=== PATIENT | female | born 1945 | race Caucasian/White ===

== ENCOUNTER 2016-08-06 10:14 | Inpatient (IN) | payer OTHER ==
[~2016-08-06] VITALS: Ht 152.4 cm; Wt 91.3 kg
[~2016-08-06 10:14] MED LIST: ALBUTEROL SULFAT3 M1 INH; ASPIR 8181 MG PO; COZAAR 100MG T100 MG PO; DOXYCYCLINE100 M2 PO; FLOVENT HF0.11 MG/Ac INH; HYDRODIURIL 2525 MG PO; LEVAQUIN500 MG PO; LISINOPRIL40 MG PO; MEDROL DOSEPAK1 PAC PO; METFORMIN ER500 MG PO; METOPROLOL SUC100 M1 PO; NORVASC 5MG TAB5 MG PO; PROAIR HFA0.09 MG/Ac INH; SIMVASTATIN40 MG PO; XANAX0.5 MG PO
--- NOTE | 2016-08-06 10:19 | NUR ---
71 Y/O FEMALE SENT BY EDI DESHPANDE FOR EVAL OF SOB X 2-3 WEEKS. PT REPORTS SOB WITH EXERTION. DENIES C/P. PT STATES HER LEGS BEGAN TO SWELL LAST WEEK. TAKEN FOR EKG/EVAL
--- NOTE | 2016-08-06 10:19 | NUR ---
B/P 214/78 - PT STATES HX SAME AND ON MEDS - "THE MEDS ARENT WORKING"; STATES SHE TOOK MEDS RECENTLY. O2 93% IN TRIAGE
--- NOTE | 2016-08-06 10:25 | ED DYSPNEA/ASTHMA COMPLAINT ---
History of Present Illness General Chief Complaint: Dyspnea (COPD, CHF, Other) Stated Complaint: SOB, SENT IN BY PCP Source: patient, old records Exam Limitations: no limitations Vital Signs & Intake/Output Vital Signs & Intake/Output Vital Signs Date Time Temp Pulse Resp B/P Pulse O2 O2 Flow FiO2 Ox Delivery Rate 08/06 1839 Nasal 2.0L Cannula 08/06 1611 98.3 85 24 180/72 98 Nasal 2.0L Cannula 08/06 1600 95 Nasal 2.0L Cannula 08/06 1502 97 Nasal 2.0L Cannula 08/06 1404 99 Nasal 2.0L Cannula 08/06 1340 98.2 82 22 198/80 99 Nasal 2.0L Cannula 08/06 1318 98.7 77 15 155/67 98 Nasal 2.0L Cannula 08/06 1157 98.6 82 20 168/74 94 Nasal 2.0L Cannula 08/06 1054 Room Air Room Air 08/06 1042 162/68 08/06 1019 98.1 93 16 214/78 93 Triage Note: 71 Y/O FEMALE SENT BY EDI DESHPANDE FOR EVAL OF SOB X 2-3 WEEKS. PT REPORTS SOB WITH EXERTION. DENIES C/P. PT STATES HER LEGS BEGAN TO SWELL LAST WEEK. TAKEN FOR EKG/EVAL Triage Nurses Notes Reviewed? yes HPI: Patient is a 71-year-old female sent in by her primary care provider for evaluation of shortness of breath and hypertension. Patient reports that she has been having dyspnea for a couple of months. Patient had a routine appointment with her primary care provider today and when discussing these symptoms was referred to the emergency department for further evaluation. Symptoms are minimal at rest, worsened with exertion. For the past one week patient has noticed bilateral lower extremity edema. Patient denies chest pain, palpitations, fevers, chills. (SUSAN SUMMERS,YESENIA) Allergies Coded Allergies: Penicillins (Intermediate, RASH 08/06/16) Iodinated Contrast Media - Oral and (Intermediate, HOT FLASHES 08/06/16) Reconcile Medications Albuterol Sulfate 3 ML NEB 3 ML INH DAILY PRN DYSPNEA (Reported) Albuterol Sulfate (Proair Hfa) 0.09 MG/Actuation CARLOS 1 PUFF INH 4 TIMES/DAY PRN DYSPNEA DISPENSE WITH SPACER Alprazolam 0.5 MG TABLET 1 TAB PO BIDP ANXIETY (Reported) Alprazolam (Xanax) 0.5 MG TABLET 0.5 TAB PO Q8P PRN anxiety take half a tab in case of anxiety Amlodipine (Norvasc 5MG Tab) 5 MG TABLET 1 TAB PO DAILY high blod pressure Aspirin (Ecotrin) 81 MG TABLET.DR 1 TAB PO DAILY HEART HEALTH (Reported) Fluticasone Propionate (Flovent Hfa) 110 MCG/ACTUATION AER.W.ADAP 2 PUF INH BID RESPIRATORY (Reported) Fluticasone Propionate (Flovent Hfa) 0.11 MG/Actuation CARLOS 2 PUF INH BID shortness of breath Hydrochlorothiazide (Hydrodiuril 25 MG Tab) 25 MG TABLET 1 TAB PO DAILY BP ( Reported) Losartan (Cozaar) 100 MG TABLET 1 TAB PO DAILY high blood pressure Losartan Potassium 100 MG TABLET 1 TAB PO DAILY HTN (Reported) Metformin HCl (Metformin HCl ER) 500 MG TAB.ER.24H 2 TAB PO BID DIABETES ( Reported) Metformin Hydrochloride (Metformin ER) [address] 2 TAB PO BID DIABETES ( Reported) Metoprolol Succinate 50 MG TAB.ER.24H 1 TAB PO DAILY HTN (Reported) PT REPORTS TAKING 2 PILLS IN THE MORNING AND TWO PILLS AT NIGHT. PT UNSURE OF TOTAL DAILY DOSE Simvastatin (Simvastatin*) 40 MG TABLET 1 TAB PO QPM CHOLESTEROL (Reported) Simvastatin 40 MG TABLET 1 TAB PO QPM CHOLESTEROL (Reported) (DANISH FLORES DO) Past History Travel History Traveled to [place] past 21 day No Medical History Any Pertinent Medical History? see below for history Neurological: NONE EENT: NONE Cardiovascular: hypertension, hyperlipidemia Respiratory: sleep apnea Gastrointestinal: NONE Hepatic: NONE Renal: NONE Musculoskeletal: NONE Psychiatric: NONE Endocrine: diabetes Blood Disorders: NONE Cancer(s): NONE LAPEL PADDER BLINDSTITCH/Reproductive: NONE Other Medical Hx: Psoriasis Pneumonia Vaccine: 01/24/13 Surgical History Surgical History: N Psychosocial History What is your primary language [place] Tobacco Use: Quit >30 days ago Family History Family History, If Any: MOTHER FHx: heart disease BROTHER FHx: heart disease SISTER FHx: lung cancer Hx Contributory? No (YESENIA MAY) Review of Systems Review of Systems Constitutional: Denies: chills, fever. EENTM: Reports: no symptoms. Respiratory: Reports: cough (mild), short of breath (with exertion). Denies: sputum production. Cardiovascular: Reports: see HPI, peripheral edema. Denies: chest pain, palpitations. GI: Denies: abdominal pain, nausea, vomiting. Genitourinary: Reports: no symptoms. Musculoskeletal: Reports: no symptoms. Skin: Reports: no symptoms. Neurological/Psychological: Reports: no symptoms. Hematologic/Endocrine: Reports: no symptoms. Immunologic/Allergic: Reports: no symptoms. (YESENIA MAY) Physical Exam Physical Exam General Appearance: well developed/nourished, alert, awake Head: atraumatic, normal appearance Eyes: Bilateral: normal appearance, PERRL, EOMI. Ears, Nose, Throat: normal pharynx, normal ENT inspection, hearing grossly normal Neck: normal inspection, supple, full range of motion Respiratory: normal breath sounds, chest non-tender, no respiratory distress, lungs clear Cardiovascular: regular rate/rhythm (no appreciable murmur) Peripheral Pulses: 2+ dorsalis pedis (R), 2+ dorsalis pedis (L) Gastrointestinal: soft, non-tender Rectal: normal exam, normal rectal tone, heme negative stool Extremities: normal capillary refill, normal range of motion, 1+ bilateral lower extremity edema Neurologic/Psych: no motor/sensory deficits, awake, alert, oriented x 3, normal gait, normal mood/affect Skin: intact, normal color, warm/dry Lymphatic: no anterior cervical joaquina Core Measures ACS in differential dx? Yes ASA ordered for poss ACS? No-ACS ruled out Severe Sepsis Present: No Septic Shock Present: No (YESENIA MAY) Progress Differential Diagnosis: AMI, CHF, COPD, pulmonary embolism, pneumonia, unstable angina Plan of Care: Orders Procedure Date/time Status Nothing by Mouth 08/07 B Active CBC WITHOUT DIFFERENTIAL 08/07 0600 Active BASIC ELECTROLYTES PLUS BUN&CR 08/07 0600 Active Consistent Carbohydrate 3 08/06 D Complete RT: Evaluation 08/06 1902 Active THERAPIST ORDERS 08/06 1840 Complete OXYGEN SETUP (GEN) 08/06 1840 Complete TROPONIN LEVEL 08/06 1700 Complete EKG 08/06 1700 Active PARTIAL THROMBOPLASTIN TIME 08/06 1611 Complete PROTHROMBIN TIME 08/06 1611 Complete PHYSICIAN CONSULT 08/06 1545 Active Pathway - chart 08/06 1501 Active Vital Signs 08/06 1342 Active Teach/Educate 08/06 1342 Active Pain Treatment and Response 08/06 1342 Active Nutritional Intake, Monitor 08/06 1342 Active Isolation 08/06 1342 Active Intake & Output 08/06 1342 Active Patient Care Conference 08/06 1342 Active Activity/Ambulation 08/06 1342 Active Pathway - chart 08/06 1215 Active House Staff 08/06 1215 Active Patient Data 08/06 1142 Active ED Holding Orders 08/06 1127 Active Admit to inpatient 08/06 1127 Active Vital Signs 08/06 1127 Active Code Status 08/06 1127 Active Intake & Output 08/06 1050 Active THYROID STIMULATING HORMONE 08/06 1030 Complete TOTAL IRON BINDING CAPACITY 08/06 1030 Complete FERRITIN 08/06 1030 Complete SERUM IRON 08/06 1030 Complete Telemetry/Punch Press Feeder 08/06 1025 Active URINALYSIS 08/06 1025 Complete TROPONIN LEVEL 08/06 1025 Complete COMPREHENSIVE METABOLIC PANEL 08/06 1025 Complete CBC WITHOUT DIFFERENTIAL 08/06 1025 Complete B-TYPE NATRIURETIC PEP (BNP) 08/06 1025 Complete EKG 08/06 1016 Active TRC EVALUATION (GEN) 08/06 UNK Complete Saline Lock 08/06 UNK Active CHF Core Measures 08/06 UNK Active Lab Add-on Test 08/06 UNK Active Weight 08/06 UNK Active VTE Mechanical Prophylaxis 08/06 UNK Active Hemoccult 08/06 UNK Active FingerStick- Glucose 08/06 UNK Active Activity/Ambulation 08/06 UNK Active ECHOCARDIOGRAM 08/06 UNK Active Current Medications Sig/Kunal Start time Last Medication Dose Stop Time Status Admin Enoxaparin Sodium 40 MG DAILY 08/07 1000 AC (Lovenox) Furosemide 20 MG DAILY 08/07 1000 AC (Lasix) Losartan Potassium 100 MG DAILY 08/07 1000 AC (Cozaar) Metoprolol Succinate 50 MG DAILY 08/07 1000 AC (Toprol Xl) Albuterol Sulfate 3 ML Q4P PRN 08/06 1930 AC (Proventil) Atorvastatin Calcium 40 MG 1700 08/06 1700 AC (Lipitor) Insulin Aspart 0 TIDAC 08/06 1700 AC (NovoLOG) Amlodipine Besylate 5 MG ONCE ONE 08/06 1545 CAN (Norvasc) 08/06 1546 Oxycodone/ 1 TAB Q6P PRN 08/06 1500 AC Acetaminophen (Percocet) Oxycodone/ 2 TAB Q6P PRN 08/06 1500 AC Acetaminophen (Percocet) Aspirin Buffered 81 MG DAILY 08/06 1459 AC (Ecotrin) Laboratory Tests 08/06/16 1725: Troponin I < 0.01, PT 11.5, INR 1.10, APTT 27 08/06/16 1130: Urine Color YEL, Urine Clarity CLEAR, Urine pH 7.0, Ur Specific [place] 1.010, Urine Protein TRACE H, Urine Ketones NEG, Urine Nitrite NEG, Urine Bilirubin NEG, Urine Urobilinogen 0.2, Ur Leukocyte Esterase TRACE H, Ur Microscopic SEDIMENT EXAMINED, Urine WBC 5-10 H, Ur Epithelial Cells FEW, Urine Hemoglobin NEG, Urine Glucose NEG 08/06/16 1030: Anion Gap 9, Estimated GFR > 60, BUN/Creatinine Ratio 22.5, Glucose 124 H, Calcium 10.2, Iron 22 L, TIBC 482, Ferritin 4.4 L, Total Bilirubin 0.5, AST 18 , ALT 38, Alkaline Phosphatase 115, Troponin I < 0.01, Pot-V-Brpeyrxjdet Pept 614 H, Total Protein 7.0, Albumin 4.2, Globulin 2.8, Albumin/Globulin Ratio 1.5 , TSH 1.810, CBC w Diff MAN DIFF ORDERED, RBC 4.33, MCV 64.4 L, MCH 19.1 L, RDW 19.2 H, MPV 7.6, Gran % 80.9 H, Lymphocytes % 13.0 L, Monocytes % 4.7, Eosinophils % 0.7, Basophils % 0.7, Absolute Granulocytes 6.7 H, Absolute Lymphocytes 1.1 L, Absolute Monocytes 0.4, Absolute Eosinophils 0.1, Absolute Basophils 0.1, Platelet Estimate ADEQUATE, Polychromasia 1+, Hypochromic- Microcytic 2+, Poikilocytosis 2+, Anisocytosis 2+, Microcytic Cells 2+, Stomatocytes 1+, PUBS MCHC 29.7 L 08/06/2016 11:50:47 AM: Results of labs and imaging discussed with patient. Discussed with and evaluated by Dr. Flores. Dr. Flores discussed patient with Dr. Vega for telemetry admission. (YESENIA MAY) Diagnostic Imaging: Viewed by Me: Radiology Read. Discussed w/RAD: Radiology Read. Radiology Impression: PATIENT: JILLIAN SHAW PRESENT AGE: 71 PATIENT ACCOUNT NO: [id number] : 43 LOCATION: [facility] ORDERING PHYSICIAN: YESENIA SUMMERS SERVICE DATE: 08/06/16 EXAM TYPE: RAD - XRY-CHEST XRAY, PA AND LATERAL EXAMINATION: XR CHEST CLINICAL INFORMATION: Dyspnea, worse with exertion. COMPARISON: Chest CT 06/14/2015. FINDINGS: Central vascular congestion without overt edema. No focal consolidation, pleural effusion, or pneumothorax. Cardiac silhouette is enlarged and unchanged. There are no acute osseous findings. IMPRESSION: Central vascular congestion without overt edema. No focal pulmonary opacities. DICTATED BY: DANISH KESSLER MD DATE/ TIME DICTATED:08/06/161105 WRITING CENTER DIRECTOR:PETE DATE/TIME TRANSCRIBED: 08/06/161105 CONFIDENTIAL, DO NOT COPY WITHOUT APPROPRIATE AUTHORIZATION. < Electronically signed in Other Vendor System> SIGNED BY: DANISH KESSLER MD 08/06/16 1111 Pre-Hospital EKG: normal sinus rhythm 87 bpm left bundle branch block, inverted T-wave in lead 1 Initial ED EKG: normal sinus rhythm 79. Borderline left axis deviation, mild ST depression in the inferior leads with inverted T waves in 3 and aVF. These are changes compared to previous EKG from 2014 Prior EKG: changed Rhythm Strip: normal sinus rhythm. QRS complexes changing from narrow complex to wide complex intermittently. (YESENIA MAY) Departure Departure Disposition: STILL A PATIENT Condition: Stable Clinical Impression Primary Impression: Acute electrocardiogram changes Secondary Impressions: Anemia, CHF (congestive heart failure) Referrals: EDI PARRA (PCP/Family) Departure Forms: Customer Survey General Discharge Information (YESENIA MAY) Admission Note Spoke With: SIERRA YEPEZ M.D Documentation of Exam: Documentation of any treatments & extenuating circumstances including Concerns Regarding Discharge (functional status, medication knowledge or non-compliance, living conditions, etc.) that warrant an admission rather than observation: [The patient needs admission for serial troponins, cardiology consultation, telemetry monitoring, likely inpatient echocardiogram, hydration of anemia] PA/SHAVING MACHINE OPERATOR Co-Sign Statement Statement: ED Attending supervision documentation- [X] I saw and evaluated the patient. I have also reviewed all the pertinent lab results and diagnostic results. I agree with the findings and the plan of care as documented in the MELINA's/SHAVING MACHINE OPERATOR's documentation. [] I have reviewed the ED Record and agree with the PA's/SHAVING MACHINE OPERATOR's documentation. [] Additions or exceptions (if any) to the PAs/SHAVING MACHINE OPERATOR's note and plan are summarized below: [] (DANISH FLORES DO) Critical Care Note Critical Care Note Critical Care Time: non-applicable (SUSAN SUMMERS,YESENIA)
--- NOTE | 2016-08-06 10:39 | NUR ---
BLOOD WORK SENT TO LAB NOW: SST, LAV, BLUE, REA.
[2016-08-06 10:41] LABS: ABSOLUTE BASOPHIL COUNT 0.1 /CUMM (0.0-0.2); ABSOLUTE EOSINOPHIL COUNT 0.1 /CUMM (0.0-0.7); ABSOLUTE GRANULOCYTE CT 6.7 /CUMM (1.4-6.5); ABSOLUTE LYMPH COUNT 1.1 /CUMM (1.2-3.4); ABSOLUTE MONOCYTE COUNT 0.4 /CUMM (0.10-0.60); BASOPHIL % 0.7 % (0.0-2.0); EOSINOPHIL % 0.7 % (0-5); GRANULOCYTE % 80.9 % (42.2-75.2); HEMATOCRIT 27.9 % (37-47); MEAN CORPUSCULAR HGB 19.1 PG (27.0-31.0); MEAN CORPUSCULAR HGB CONC 29.7 G/DL (33.0-37.0); MEAN CORPUSCULAR VOLUME 64.4 FL (81.0-99.0); MEAN PLATELET VOLUME 7.6 FL (7.4-10.4); PLATELET COUNT 349 /CUMM (130-400); RBC DISTRIBUTION WIDTH 19.2 % (11.5-14.5); RED BLOOD CELL CT 4.33 /CUMM (4.20-5.40); WHITE BLOOD CELL COUNT 8.3 /CUMM (4.8-10.8)
--- NOTE | 2016-08-06 10:50 | NUR ---
PT RETURNED FROM XRAY
--- NOTE | 2016-08-06 11:11 | RADIOLOGY REPORT ---
EXAMINATION: XR CHEST CLINICAL INFORMATION: Dyspnea, worse with exertion. COMPARISON: Chest CT 06/14/2015. FINDINGS: Central vascular congestion without overt edema. No focal consolidation, pleural effusion, or pneumothorax. Cardiac silhouette is enlarged and unchanged. There are no acute osseous findings. IMPRESSION: Central vascular congestion without overt edema. No focal pulmonary opacities.
--- NOTE | 2016-08-06 11:35 | NUR ---
URINE TRIO SENT BY THIS [facility]
--- NOTE | 2016-08-06 11:59 | NUR ---
PT'S O2 SAT DROPPED TO 88 ON RA WITH STEADY WAVEFORM. PT PLACED ON 2L NC OXYGEN WITH IMPROVEMENT TO 96%.
--- NOTE | 2016-08-06 12:09 | History & Physical ---
[facility] 08/06/16 1209: General Information and HPI MD Statement: I have seen and personally examined JILLIAN SHAW and documented this H&P. The patient is a 71 year old F who presented with a patient stated chief complaint of [SOB, HTN]. Source of Information: patient, old records Exam Limitations: no limitations History of Present Illness: Mrs. Shaw is a 71 yo women with PMHx. significant for HTN, HLD, T2DM, Psoriasis referred to ED from her PCP office for , more evaluation, patient have been complaining of SOB over the last 2 months which is getting progressivley worse, she described her symptoms to be minimal at rest and worsened with exertion, she is sleeping on a recliner in a semisetting position, she can't sleep falt 2/2 worsening SOB, she also report B/L lower extrimity swelling over the last 2 weeks, which improved today, she noticed she need some support when she walk for a long time, at her baseling she is dependent, doesn't use walker or cane. She denies F/C/N/V, chest pain, heart racing, dizziness, headacheche, vision changes and there is no changes in urinary or bowel habit. Patient was seen by her PCP today, her BP was elevated and she had some EKG changes, so, she was sent to ED for more evaluation. Patient is followed by , last time she saw him about 9 months ago, and she had PFT test done at 2015 which showed Mild COPD. She have been told she didn't need sleep study. Allergies/Medications Allergies: Coded Allergies: Penicillins (Intermediate, RASH 08/06/16) Iodinated Contrast Media - Oral and (Intermediate, HOT FLASHES 08/06/16) Home Med list Albuterol Sulfate 3 ML NEB 3 ML INH DAILY PRN DYSPNEA (Reported) Albuterol Sulfate (Proair Hfa) 0.09 MG/Actuation CARLOS 1 PUFF INH 4 TIMES/DAY PRN DYSPNEA DISPENSE WITH SPACER Alprazolam 0.5 MG TABLET 1 TAB PO BIDP ANXIETY (Reported) Alprazolam (Xanax) 0.5 MG TABLET 0.5 TAB PO Q8P PRN anxiety take half a tab in case of anxiety Amlodipine (Norvasc 5MG Tab) 5 MG TABLET 1 TAB PO DAILY high blod pressure Aspirin (Ecotrin) 81 MG TABLET.DR 1 TAB PO DAILY HEART HEALTH (Reported) Fluticasone Propionate (Flovent Hfa) 110 MCG/ACTUATION AER.W.ADAP 2 PUF INH BID RESPIRATORY (Reported) Fluticasone Propionate (Flovent Hfa) 0.11 MG/Actuation CARLOS 2 PUF INH BID shortness of breath Hydrochlorothiazide (Hydrodiuril 25 MG Tab) 25 MG TABLET 1 TAB PO DAILY BP ( Reported) Losartan (Cozaar) 100 MG TABLET 1 TAB PO DAILY high blood pressure Losartan Potassium 100 MG TABLET 1 TAB PO DAILY HTN (Reported) Metformin HCl (Metformin HCl ER) 500 MG TAB.ER.24H 2 TAB PO BID DIABETES ( Reported) Metformin Hydrochloride (Metformin ER) [address] 2 TAB PO BID DIABETES ( Reported) Metoprolol Succinate 50 MG TAB.ER.24H 1 TAB PO DAILY HTN (Reported) PT REPORTS TAKING 2 PILLS IN THE MORNING AND TWO PILLS AT NIGHT. PT UNSURE OF TOTAL DAILY DOSE Simvastatin (Simvastatin*) 40 MG TABLET 1 TAB PO QPM CHOLESTEROL (Reported) Simvastatin 40 MG TABLET 1 TAB PO QPM CHOLESTEROL (Reported) Past History Travel History Traveled to [place] past 21 day No Medical History Neurological: NONE EENT: NONE Cardiovascular: hypertension, hyperlipidemia Respiratory: sleep apnea Gastrointestinal: NONE Hepatic: NONE Renal: NONE Musculoskeletal: NONE Psychiatric: NONE Endocrine: diabetes Blood Disorders: NONE Cancer(s): NONE ASSISTANT DIRECTOR OF NURSING/Reproductive: NONE Other Medical Hx: Psoriasis Pneumonia Vaccine: 01/24/13 Surgical History Surgical History: N Past Family/Social History Family History Relations & Conditions if any MOTHER FHx: heart disease BROTHER FHx: heart disease SISTER FHx: lung cancer Functional Ability Ambulation: independent Review of Systems Review of Systems Constitutional: Reports: no symptoms. EENTM: Reports: no symptoms. Cardiovascular: Reports: no symptoms. Respiratory: Reports: short of breath. GI: Reports: no symptoms. Genitourinary: Reports: no symptoms. Musculoskeletal: Reports: no symptoms. Skin: Reports: no symptoms. Neurological/Psychological: Reports: no symptoms. Exam & Diagnostic Data Last 24 Hrs of Vital Signs/I&O Vital Signs Date Time Temp Pulse Resp B/P Pulse O2 O2 Flow FiO2 Ox Delivery Rate 08/06 1502 97 Nasal 2.0L Cannula 08/06 1404 99 Nasal 2.0L Cannula 08/06 1340 98.2 82 22 198/80 99 Nasal 2.0L Cannula 08/06 1318 98.7 77 15 155/67 98 Nasal 2.0L Cannula 08/06 1157 98.6 82 20 168/74 94 Nasal 2.0L Cannula 08/06 1054 Room Air Room Air 08/06 1042 162/68 08/06 1019 98.1 93 16 214/78 93 Intake & Output 08/06 1600 08/06 0800 08/06 0000 Intake Total 0 Output Total 1200 Balance -1200 Intake, Oral 0 Output, Urine 1200 Patient 220 lb Weight Physical Exam General Appearance Alert, Cooperative, No Acute Distress Skin No Rashes, No Breakdown, No Significant Lesion HEENT Atraumatic, PERRLA, EOMI, Mucous Membr. moist/pink Neck Supple, No JVD Lymphatic Axillary nl, Cervical nl Cardiovascular Normal S1, Normal S2, No Murmurs Lungs Clear to Auscultation, Normal Air Movement Abdomen Normal Bowel Sounds, Soft, No Tenderness Neurological Strength at 5/5 X4 Ext, Normal Tone, Sensation Intact Extremities No Edema, Normal Pulses Vascular Normal Pulses, Pulses Symmetrical Last 24 Hrs of Labs/Prem: Laboratory Tests 08/06/16 1130: Urine Color YEL, Urine Clarity CLEAR, Urine pH 7.0, Ur Specific [place] 1.010, Urine Protein TRACE H, Urine Ketones NEG, Urine Nitrite NEG, Urine Bilirubin NEG, Urine Urobilinogen 0.2, Ur Leukocyte Esterase TRACE H, Ur Microscopic SEDIMENT EXAMINED, Urine WBC 5-10 H, Ur Epithelial Cells FEW, Urine Hemoglobin NEG, Urine Glucose NEG 08/06/16 1030: Anion Gap 9, Estimated GFR > 60, BUN/Creatinine Ratio 22.5, Glucose 124 H, Calcium 10.2, Total Bilirubin 0.5, AST 18, ALT 38, Alkaline Phosphatase 115, Troponin I < 0.01, Lht-M-Leghwhqbbdz Pept 614 H, Total Protein 7.0, Albumin 4.2 , Globulin 2.8, Albumin/Globulin Ratio 1.5, CBC w Diff MAN DIFF ORDERED, RBC 4.33, MCV 64.4 L, MCH 19.1 L, RDW 19.2 H, MPV 7.6, Gran % 80.9 H, Lymphocytes % 13.0 L, Monocytes % 4.7, Eosinophils % 0.7, Basophils % 0.7, Absolute Granulocytes 6.7 H, Absolute Lymphocytes 1.1 L, Absolute Monocytes 0.4, Absolute Eosinophils 0.1, Absolute Basophils 0.1, Platelet Estimate ADEQUATE, Polychromasia 1+, Hypochromic-Microcytic 2+, Poikilocytosis 2+, Anisocytosis 2+, Microcytic Cells 2+, Stomatocytes 1+, PUBS MCHC 29.7 L Diagnostic Data EKG Results At ED: SR, rate: 97, Lt. axis deviation, T-wave inversion in lead 3, avf CXR Results Central vascular congestion without overt edema, no focal pulmonary opacity. Assessment/Plan Assessment: 71 yo women with PMHx. of HTN, HLD, type 2 DM presented to ED from PCP office for SOB and elevated BP. Vitals, exam and labs as above: Plan: #SOB: could be secondary to CHF or bronchitis, patient had PFT done at 2014 wich showed mild bronchitis, she is a former smoker quite years ago, used to smoke 1ppd. Will obtain TRC evaluation, and continue her home inhalers. #EKG changes: Patient EKG at her PCP office showed ventricular extrasystole with some st-t wave changes, at our ED EKG repeated which showed Lt. axis deviation with T-wave inversion at lead III and AVF. to see the patient today. Patient also has SOB, She report B/L edema: her chest x-ray shows centeral vascular congestion with no overt edema. that may represent anew onset CHF. Her last Echo at 2014 showed EF>55%. She received IV Lasix at ED, her symptoms improved afterward. Will repeat Echocardiography, trend Troponin and EKG. Will check TSH #Anemia: her H&H 8.3/27.9, MCV:64.4, RDW:19.2. Will order FOBT, will start iron supplement. CBC to be check at am Will order complete iron study and start the patient on iron supplement for now. #Hx. of HTN: Patient BP at presentation her BP: 214/78, down to 155/67, however it checked again and found to be 198/80. Will give her another dose of Lasix 20mg and check her BP after 2 hour. Will continue her home meds: Metoprolol 50mg po daily, Losartan 100mg po daily. She report that Hydrochlorothiazide and Amlodipine was discontinued by PCP. #Hx. of DM: Will hold Metformin and start insulin sliding scale TIDAC/HS with acchucheck. #Hx. of HLD: Will continue Zocor 40mg PO QPM. Diabetic diet SC Lovenox Full code. As Ranked By This Provider Problem List: 1. CHF (congestive heart failure) 2. Anemia 3. Acute electrocardiogram changes Core Measures/Miscellaneous Acute Coronary Syndrome ACS Diagnosis: No Cerebrovascular Accident CVA/TIA Diagnosis: No Congestive Heart Failure CHF Diagnosis: Yes Venous Thromboembolism VTE Risk Factors: Acute medical illness, Age > 40, CHF or Resp failure No [facility] VTE prophylaxis d/t: No contraindications No VTE Pharm Prophylaxis d/t: No contraindications VTE Diagnosis: No VTE Type: NONE VTE Confirmed by (Test): NONE Severe Sepsis Severe Sepsis Present: No Septic Shock Septic Shock Present: No Miscellaneous Documentation Attending Case Discussed With: SIERRA YEPEZ M.D Primary Care Physician: EDI PARRA Patient sees these Specialists [facility] Level of Patient Care: Telemetry JOHN ALONSO MD 08/06/16 1728: Attending MD Review Statement Attending Statement Attending MD Statement: examined this patient, discuss w/resident/PA/BASE MANAGER, agreed w/resident/PA/BASE MANAGER, reviewed EMR data (avail) Attending Assessment/Plan: 71F PMH HTN, HLD, T2DM sent from PCP office for exertional dyspnea and EKG changes. Over the past few months patient has noticed a decrease in exercise tolerance, becoming dyspneic after progressively shorter distances, now has to stop before completing a flight of stairs or walking more than a 100 feet. Denies chest pain, palpitations, or lightheadedness. Was previously admitted for syncope October 2014 but this was most likely vasovagal as it occured in a very hot elevator in the summer. Noticed lower extremity edema for the past two weeks as well. EKG done in ED shows NSR with T-wave flattening in inferior leads. EKG done in PCP office this morning shows an incomplete LBBB. First troponin is negative. NAD NCAT Supple RRR no m/r/g CTAB Soft, NTND Trace bilateral edema Pulses intact A&Ox3 no focal deficits Plan - Admit to telemetry - Serial EKG and troponin - Urgent cardiology consult due to exertional dyspnea and dynamic EKG changes - Obtain echocardiogrma - Nuclear stress test tomorrow - NPO after midnight - Start ASA - Continue home medications including Atorvastatin - DVT PPx
--- NOTE | 2016-08-06 12:32 | NUR ---
PT ADMITTED TO ROOM 182-1
--- NOTE | 2016-08-06 12:54 | NUR ---
REPORT GIVEN TO HE[facility] WALLER.
[2016-08-06] MEDS ORDERED: LOSARTAN POTAS100 M1 PO (12:56)
[2016-08-06] MEDS ORDERED: SIMVASTATIN40 M1 PO (12:57)
[2016-08-06] MEDS ORDERED: FLOVENT HFA12 G1 INH (12:58)
[2016-08-06] MEDS ORDERED: METOPROLOL SUCC50 M2 PO (12:59)
[2016-08-06] MEDS ORDERED: METFORMIN HCL500 M4 PO (13:02)
[2016-08-06] MEDS ORDERED: ALPRAZOLAM0.5 M4 PO (13:02)
--- NOTE | 2016-08-06 13:05 | NUR ---
HOUSE STAFF AT BEDSIDE FOR EVAL.
[2016-08-06 13:40] VITALS: BP 198/80
[2016-08-06 16:11] VITALS: BP 108/48; BP 180/72
--- NOTE | 2016-08-06 17:33 | Admission Certification ---
Admission Certification Certification Statement - As attending physician, I certify that at the time of - admission, based on clinical presentation, severity of - symptoms, need for further diagnostic testing and - therapeutic interventions, and risk of adverse outcomes - without in-hospital treatment, in my clinical assessment, - this patient requires an acute hospital stay for a minimum - of two nights or longer. I have also considered psychsocial - factors such as support system, advanced age, financial - issues, cognitive issues, and failed out-patient treatments, - past re-admission history, safety of patient, and lack of - compliance as applicable. Specific rationale supporting this admission is: exertional dyspnea and dynamic EKG changes in high risk cardiac patient
[2016-08-06 17:59] LABS: PT 11.5 SEC (9.4-12.5); PTT 27 SEC (25-37)
--- NOTE | 2016-08-06 18:55 | Cons- Cardiology ---
General Information and HPI Consulting Request Date of Consult: 08/06/16 Requested By: SIERRA YEPEZ M.D History of Present Illness: Mrs. Verdin is a 71 year old female with history of hypertension, dyslipidemia and diabetes. She also carries a history of COPD likely related to tobacco abuse many years ago. Over the past year this patient has noted shortness of breath with activity along with orthopnea and PND. These symptoms have progressed over time. Today, her primary care physician referred the patient to the ER for evaluation of her severe shortness of breath. In the ER the patient was discovered to have severe hypertension. She has not engaged in very good follow up for this condition and she admits to overeating and to having indiscretions with sodium. This patient also has intermittent swelling of her legs. Otherwise she denies chest pain, pressure or tightness. She has had some intermitting lightheadedness upon arising quickly. Palpitations are not part of her clinical syndrome. It should be recalled that in 2014 this patient was noted to have sinus pauses and syncope. Allergies/Medications Allergies: Coded Allergies: Penicillins (Intermediate, RASH 08/06/16) Iodinated Contrast Media - Oral and (Intermediate, HOT FLASHES 08/06/16) Home Med List: Albuterol Sulfate 3 ML NEB 3 ML INH DAILY PRN DYSPNEA (Reported) Albuterol Sulfate (Proair Hfa) 0.09 MG/Actuation CARLOS 1 PUFF INH 4 TIMES/DAY PRN DYSPNEA DISPENSE WITH SPACER Alprazolam 0.5 MG TABLET 1 TAB PO BIDP ANXIETY (Reported) Alprazolam (Xanax) 0.5 MG TABLET 0.5 TAB PO Q8P PRN anxiety take half a tab in case of anxiety Amlodipine (Norvasc 5MG Tab) 5 MG TABLET 1 TAB PO DAILY high blod pressure Aspirin (Ecotrin) 81 MG TABLET.DR 1 TAB PO DAILY HEART HEALTH (Reported) Fluticasone Propionate (Flovent Hfa) 110 MCG/ACTUATION AER.W.ADAP 2 PUF INH BID RESPIRATORY (Reported) Fluticasone Propionate (Flovent Hfa) 0.11 MG/Actuation CARLOS 2 PUF INH BID shortness of breath Hydrochlorothiazide (Hydrodiuril 25 MG Tab) 25 MG TABLET 1 TAB PO DAILY BP ( Reported) Losartan (Cozaar) 100 MG TABLET 1 TAB PO DAILY high blood pressure Losartan Potassium 100 MG TABLET 1 TAB PO DAILY HTN (Reported) Metformin HCl (Metformin HCl ER) 500 MG TAB.ER.24H 2 TAB PO BID DIABETES ( Reported) Metformin Hydrochloride (Metformin ER) [address] TAB PO BID DIABETES ( Reported) Metoprolol Succinate 50 MG TAB.ER.24H 1 TAB PO DAILY HTN (Reported) PT REPORTS TAKING 2 PILLS IN THE MORNING AND TWO PILLS AT NIGHT. PT UNSURE OF TOTAL DAILY DOSE Simvastatin (Simvastatin*) 40 MG TABLET 1 TAB PO QPM CHOLESTEROL (Reported) Simvastatin 40 MG TABLET 1 TAB PO QPM CHOLESTEROL (Reported) Review of Systems Review of Systems: A twelve point review of systems is unremarkable. Past History Travel History Traveled to [place] past 21 day No Medical History Blood Transfusion Hx: No Neurological: NONE EENT: NONE Cardiovascular: hypertension, hyperlipidemia Respiratory: sleep apnea Gastrointestinal: NONE Hepatic: NONE Renal: NONE Musculoskeletal: NONE Psychiatric: anxiety Endocrine: diabetes Blood Disorders: NONE Cancer(s): NONE [employer]/Reproductive: NONE Other Medical Hx: Psoriasis Surgical History Surgical History: none Family History Relations & Conditions If Any: MOTHER FHx: heart disease BROTHER FHx: heart disease SISTER FHx: lung cancer Family History Reviewed? Mother: heart failure in her early 60's Brother: CAD in his 40's Psychosocial History Where Do You Live? Home Services at Home: None Smoking Status: Former Smoker (quit 25 years ago) Functional Ability Ambulation: independent Exam & Diagnostic Data Vital Signs and I&O Vital Signs Date Time Temp Pulse Resp B/P Pulse O2 O2 Flow FiO2 Ox Delivery Rate 08/06 1611 98.3 85 24 180/72 98 Nasal 2.0L Cannula 08/06 1502 97 Nasal 2.0L Cannula 08/06 1404 99 Nasal 2.0L Cannula 08/06 1340 98.2 82 22 198/80 99 Nasal 2.0L Cannula 08/06 1318 98.7 77 15 155/67 98 Nasal 2.0L Cannula 08/06 1157 98.6 82 20 168/74 94 Nasal 2.0L Cannula 08/06 1054 Room Air Room Air 08/06 1042 162/68 08/06 1019 98.1 93 16 214/78 93 Intake & Output 08/06 1600 08/06 0800 08/06 0000 08/05 1600 08/05 0800 08/05 0000 Intake Total 0 Output Total 1200 Balance -1200 Intake, Oral 0 Output, Urine 1200 Patient 220 lb Weight Physical Exam: General: WD/ obese female in NAD; alert and oriented x 3 HEENT: NC/AT, PERRL, EOMI Neck: no JVD, no carotid bruit Heart: RRR w/o murmur Lungs: clear bilaterally Abdomen: soft, obese, NT, +ve bowel sounds Extremities: no edema Diagnostic Data EKG Results sinus rhythm with incomplete RBBB and left axis deviation Assessment/Plan Assessment/Plan * This patient has symptoms of decompensated congestive heart failure. In addition, she does have some pulmonary vascular congestion on her chest X-ray. I suspect that this condition is related to her uncontrolled hypertension. Anemia may also be a contributor to her exercise intolerance however. I don't think this patient has been compliant with her medications. She only recalls taking Metoprolol and Losartan. I would continue Metoprolol at 50mg daily and Losartan at 100mg daily. Begin Lasix at 20mg daily. This patient needs to engage in a low sodium and weight loss diet. * Obtain an echocardiogram to assess her LV function, RV pressures and myocardial thickness. Her symptoms, including shortness of breath and orthopnea can be related to COPD alone although I am not auscultating any wheezing at this time. It would be helpful to see if her RV pressures are elevated on echocardiography. She does not have JVD. * This patient has multiple risk factors for coronary artery disease. When her blood pressure is better controlled she should pursue a pharmacologic stress test. This can be done as an outpatient. For now continue aspirin and a statin. Consult Acknowledgment - Thank you for your consult request.
[2016-08-06 22:30] VITALS: BP 146/74
[2016-08-07 07:59] LABS: HEMATOCRIT 29.2 % (37-47)
[2016-08-07 08:05] VITALS: BP 140/69
[2016-08-07 08:19] LABS: ABSOLUTE BASOPHIL COUNT 0 /CUMM (0.0-0.2); ABSOLUTE EOSINOPHIL COUNT 0.1 /CUMM (0.0-0.7); ABSOLUTE GRANULOCYTE CT 3.9 /CUMM (1.4-6.5); ABSOLUTE LYMPH COUNT 1.5 /CUMM (1.2-3.4); ABSOLUTE MONOCYTE COUNT 0.5 /CUMM (0.10-0.60); BASOPHIL % 0.4 % (0.0-2.0); EOSINOPHIL % 2.1 % (0-5); GRANULOCYTE % 64.7 % (42.2-75.2); MEAN CORPUSCULAR HGB CONC 29.4 G/DL (33.0-37.0); MEAN CORPUSCULAR VOLUME 64.5 FL (81.0-99.0); PLATELET COUNT 310 /CUMM (130-400); RBC DISTRIBUTION WIDTH 19.4 % (11.5-14.5); RED BLOOD CELL CT 4.53 /CUMM (4.20-5.40)
--- NOTE | 2016-08-07 08:30 | PN- Housestaff ---
[facility] 08[facility]07[facility]16 0823: Subjective Follow-up For: -SOB -CHF -Anemia Complaints: no complaints Subjective: Patient seen and examind, she is lying in the bed comfortable with no acute distress, she is on 2L NC, she denies any respiratory distress, cp/ n/ v and there is n ochange in the urinary or bowel habits. Vitals at am is stable Review of Systems Constitutional: Reports: no symptoms. EENTM: Reports: no symptoms. Cardiovascular: Reports: no symptoms. Respiratory: Reports: no symptoms. Gastrointestinal: Reports: no symptoms. Genitourinary: Reports: no symptoms. Musculoskeletal: Reports: no symptoms. Skin: Reports: no symptoms. Objective Last 24 Hrs of Vital Signs/I&O Vital Signs Date Time Temp Pulse Resp B/P Pulse O2 O2 Flow FiO2 Ox Delivery Rate 08/07 0805 99.6 82 18 140/69 97 Nasal 2.0L Cannula 08/07 0000 Nasal 2.0L Cannula 08/06 2230 97.9 70 22 146/74 95 Nasal 2.0L Cannula 08/06 1839 Nasal 2.0L Cannula 08/06 1611 98.3 85 24 180/72 98 Nasal 2.0L Cannula 08/06 1600 95 Nasal 2.0L Cannula 08/06 1502 97 Nasal 2.0L Cannula 08/06 1404 99 Nasal 2.0L Cannula 08/06 1340 98.2 82 22 198/80 99 Nasal 2.0L Cannula 08/06 1318 98.7 77 15 155/67 98 Nasal 2.0L Cannula 08/06 1157 98.6 82 20 168/74 94 Nasal 2.0L Cannula 08/06 1054 Room Air Room Air 08/06 1042 162/68 08/06 1019 98.1 93 16 214/78 93 Intake & Output 08/07 1600 08/07 0800 08/07 0000 Intake Total 0 350 Output Total 1500 1175 Balance -1500 -825 Intake, IV 0 0 Intake, Oral 0 350 Number 0 0 Bowel Movements Output, Urine 1500 1175 Patient 205 lb Weight Physical Exam General Appearance: Alert, Oriented X3, Cooperative, No Acute Distress Skin: No Rashes, No Breakdown, No Significant Lesion HEENT: Atraumatic, PERRLA, EOMI, Mucous Membr. moist/pink Neck: Supple, No JVD Lymphatic: Axillary nl, Cervical nl Cardiovascular: Normal S1, Normal S2 Lungs: Clear to Auscultation, Normal Air Movement Abdomen: Soft, No Tenderness Neurological: Strength at 5/5 X4 Ext, Normal Tone, Sensation Intact Extremities: No Cyanosis, No Edema Vascular: Normal Pulses, Pulses Symmetrical Current Medications: Current Medications Sig/Kunal Start time Last Medication Dose Route Stop Time Status Admin Acetaminophen 650 MG Q6P PRN 08/06 1500 AC 08/06 PO 1738 Albuterol Sulfate 3 ML Q4P PRN 08/06 1930 AC INH Alprazolam 0.5 MG BID PRN 08/06 1500 AC 08/06 PO 08/13 1459 1941 Amlodipine Besylate 5 MG ONCE ONE 08/06 1545 CAN PO 08/06 1546 Aspirin Buffered 81 MG DAILY 08/06 1459 AC PO Atorvastatin Calcium 40 MG 1700 08/06 1700 AC PO Enoxaparin Sodium 40 MG DAILY 08/07 1000 AC SC Ferrous Sulfate 325 MG DAILY 08/06 1609 AC 08/06 PO 1738 Furosemide 20 MG DAILY 08/07 1000 AC IV Furosemide 20 MG ONCE ONE 08/06 1545 DC 08/06 IV 08/06 1546 1738 Furosemide 0 .STK-MED ONE 08/06 1150 DC IV Furosemide 20 MG ONCE ONE 08/06 1145 DC 08/06 IV 08/06 1146 1200 Insulin Aspart 0 TIDAC 08/06 1700 AC SC Losartan Potassium 100 MG DAILY 08/07 1000 AC PO Metoprolol Succinate 50 MG DAILY 08/07 1000 AC PO Oxycodone/ 1 TAB Q6P PRN 08/06 1500 AC Acetaminophen PO Oxycodone/ 2 TAB Q6P PRN 08/06 1500 AC Acetaminophen PO Last 24 Hrs of Lab/Prem Results Last 24 Hrs of Labs/Mics: Laboratory Tests 08/07/16 0640: Anion Gap 11, Estimated GFR > 60, BUN/Creatinine Ratio 21.1 08/07/16 0615: CBC w Diff Pending, WBC Pending, RBC Pending, Hgb Pending, Hct Pending, MCV Pending, MCH Pending, RDW Pending, Plt Count Pending, MPV Pending, PUBS MCHC Pending 08/06/16 1725: Troponin I < 0.01, PT 11.5, INR 1.10, APTT 27 08/06/16 1130: Urine Color YEL, Urine Clarity CLEAR, Urine pH 7.0, Ur Specific [place] 1.010, Urine Protein TRACE H, Urine Ketones NEG, Urine Nitrite NEG, Urine Bilirubin NEG, Urine Urobilinogen 0.2, Ur Leukocyte Esterase TRACE H, Ur Microscopic SEDIMENT EXAMINED, Urine WBC 5-10 H, Ur Epithelial Cells FEW, Urine Hemoglobin NEG, Urine Glucose NEG 08/06/16 1030: Anion Gap 9, Estimated GFR > 60, BUN/Creatinine Ratio 22.5, Glucose 124 H, Calcium 10.2, Iron 22 L, TIBC 482, Ferritin 4.4 L, Total Bilirubin 0.5, AST 18 , ALT 38, Alkaline Phosphatase 115, Troponin I < 0.01, Itl-K-Ooqvbaejuhx Pept 614 H, Total Protein 7.0, Albumin 4.2, Globulin 2.8, Albumin/Globulin Ratio 1.5 , TSH 1.810, CBC w Diff MAN DIFF ORDERED, RBC 4.33, MCV 64.4 L, MCH 19.1 L, RDW 19.2 H, MPV 7.6, Gran % 80.9 H, Lymphocytes % 13.0 L, Monocytes % 4.7, Eosinophils % 0.7, Basophils % 0.7, Absolute Granulocytes 6.7 H, Absolute Lymphocytes 1.1 L, Absolute Monocytes 0.4, Absolute Eosinophils 0.1, Absolute Basophils 0.1, Platelet Estimate ADEQUATE, Polychromasia 1+, Hypochromic- Microcytic 2+, Poikilocytosis 2+, Anisocytosis 2+, Microcytic Cells 2+, Stomatocytes 1+, PUBS MCHC 29.7 L Assessment/Plan Assessment: 71 yo women with PMHx. of HTN, HLD, type 2 DM presented to ED from PCP office for SOB and elevated BP. Plan: #SOB with pulmonary vascular congestion: uncontrolled BP and anemia play arole, patient had PFT done at 2014 wich showed mild bronchitis, she is a former smoker quite years ago, used to smoke 1ppd. Will obtain TRC evaluation, and continue her home inhalers. #EKG changes with SOB in pt who have multiple risk factor for CAD: Patient needs pharmacologic stress test, patient seen by who recommend to continue Metoprolol at 50mg daily and Losartan at 100mg daily. Begin Lasix at 20mg daily. This patient needs to engage in a low sodium and weight loss diet. Pharmacologic stress test to be done as an outpatient Will f/u echo. result #Anemia: her H&H 8.3/27.9, MCV:64.4, RDW:19.2. Will f/u FOBT, will start iron supplement. today H&H: Iron study shows low iron and ferritin level #Hx. of HTN: Patient BP at presentation her BP: 214/78, down to 155/67, however it checked again and found to be 198/80. she is now on Lasix 20mg daily, beside home meds. Will continue her home meds: Metoprolol 50mg po daily, Losartan 100mg po daily. She report that Hydrochlorothiazide and Amlodipine was discontinued by PCP. #Hx. of DM: Will hold Metformin and start insulin sliding scale TIDAC/HS with acchucheck. #Hx. of HLD: Will continue Zocor 40mg PO QPM. Diabetic diet SC Lovenox Full code. Problem List: 1. Anemia 2. Acute electrocardiogram changes 3. Dyspnea on exertion Pain Ratin Pain Location: - Pain Goal: Remain pain free Pain Plan: - Tomorrow's Labs & Rationales: - DVT/Prophylaxis: pharmacological JOHN ALONSO MD 08/07/16 1352: Attending MD Review Statement Attending Statement Attending MD Statement: examined this patient, discuss w/resident/PA/KENNEL HAND, agreed w/resident/PA/KENNEL HAND, reviewed EMR data (avail) Attending Assessment/Plan: 71F PMH HTN, HLD, T2DM sent from PCP office for exertional dyspnea and EKG changes. Over the past few months patient has noticed a decrease in exercise tolerance, becoming dyspneic after progressively shorter distances, now has to stop before completing a flight of stairs or walking more than a 100 feet. Denies chest pain, palpitations, or lightheadedness. Was previously admitted for syncope October 2014 but this was most likely vasovagal as it occured in a very hot elevator in the summer. Noticed lower extremity edema for the past two weeks as well. EKG done in ED shows NSR with T-wave flattening in inferior leads. EKG done in PCP office this morning shows an incomplete LBBB. Today breathing is better and patient is more relaxed. BP is improved NAD NCAT Supple RRR no m/r/g CTAB Soft, NTND Trace bilateral edema Pulses intact A&Ox3 no focal deficits Plan - Continue on telemetry - Serial EKG and troponin - Follow cardiology recommendations - Obtain echocardiogram - Outpatient nuclear stress - Start ASA - Continue home medications including Atorvastatin - DVT PPx - Anticipated discharge tomorrow if BP is improved
--- NOTE | 2016-08-07 08:46 | ECHOCARDIOGRAM REPORT ---
JILLIAN SHAW Age: 71 : 1945 Gender: F Exam Date: 08/06/2016 16:22 Exam Location: [facility] Ht (in): 61 Wt (lb): 220 BSA: 2.13 BP: 155 / 67 Ordering Physician: NICK ESCOBAR MD Referring Physician: NICK ESCOBAR MD Technologist: Gemma Martinez RDCS Room Number: [id number] Indications: SHORTNESS OF BREATH Rhythm: Sinus Technical Quality: good FINDINGS Left Ventricle Normal left ventricular size with mild left ventricular hypertrophy. Normal systolic function with no obvious regional wall motion abnormalities. Diastolic filling pattern is consistent with impaired LV relaxation. The ejection fraction is visually estimated at 75%. Right Ventricle The right ventricle is normal in size and function. Right Atrium The right atrium is normal in size. Left Atrium The left atrium is normal in size. The interatrial septum is intact. Mitral Valve The mitral valve is normal in structure and function. There is no mitral regurgitation. Aortic Valve Structurally normal aortic valve without significant sclerosis or stenosis. There is no aortic regurgitation. Tricuspid Valve The tricuspid valve is normal in structure and function. There is no tricuspid regurgitation. Pulmonic Valve Structurally normal pulmonic valve. There is trace pulmonic regurgitation. Pericardium Normal pericardium without effusion. No pleural effusion. Great Vessels Normal aortic root dimension. The aortic arch and great vessels are well seen and are normal. CONCLUSIONS 1. Normal EF of 75% with impaired LV relaxation. 2. Mild left ventricular hypertrophy. 3. Trace pulmonic insufficiency. Ten Kaminski M.D. (Electronically Signed) Final Date: 07 August 2016 08:45 MEASUREMENTS (Male / Female) Normal Values 2D ECHO LV Diastolic Diameter PLAX 4.6 cm 4.2 - 5.9 / 3.9 - 5.3 cm LV Systolic Diameter PLAX 2.6 cm 2.1 - 4.0 cm LV Fractional Shortening PLAX 43.5 % 25 - 46 % LV Ejection Fraction 2D Teich 74.7 % IVS Diastolic Thickness 1.5 cm LVPW Diastolic Thickness 1.4 cm LV Relative Wall Thickness 0.6 RV Internal Dim ED PLAX 2.6 cm 1.9 - 3.8 cm LVOT Diameter 2.2 cm Aortic Root Diameter 2.9 cm LA Systolic Diameter LX 3.8 cm 3.0 - 4.0 / 2.7 - 3.8 cm LA Volume 36.0 cm 18 - 58 / 22 - 52 cm Ascending Aorta Diameter 3.4 cm DOPPLER AV Peak Velocity 189.0 cm/s AV Peak Gradient 14.3 mmHg AV Mean Velocity 137.0 cm/s AV Mean Gradient 8.0 mmHg AV Velocity Time Integral 39.1 cm LVOT Peak Velocity 161.0 cm/s LVOT Peak Gradient 10.4 mmHg LVOT Mean Velocity 113.0 cm/s LVOT Mean Gradient 6.0 mmHg LVOT Velocity Time Integral 30.3 cm LVOT Stroke Volume 115.2 cm AV Area Cont Eq vti 2.9 cm AV Area Cont Eq pk 3.2 cm MV Peak Velocity 145.0 cm/s MV Peak Gradient 8.4 mmHg MV Mean Velocity 86.2 cm/s MV Mean Gradient 4.0 mmHg Mitral E Point Velocity 117.0 cm/s Mitral A Point Velocity 152.0 cm/s Mitral E to A Ratio 0.8 MV PHT Velocity 137.0 cm/s MV Deceleration [place] 728.0 cm/s MV Pressure Half Time 56.5 ms MV Area PHT 3.9 cm MV Deceleration Time 248.0 ms PV Peak Velocity 130.0 cm/s PV Peak Gradient 6.8 mmHg PV Mean Velocity 95.3 cm/s PV Mean Gradient 4.0 mmHg PV Velocity Time Integral 21.9 cm LV E' Lateral Velocity 9.6 cm/s Mitral E to LV E' Lateral Ratio 12.2 LV E' Septal Velocity 8.6 cm/s Mitral E to LV E' Septal Ratio 13.6
--- NOTE | 2016-08-07 08:57 | NUR ---
A&OX3,AFEBRILE,DENIES PAIN,C/O WHISTLING IN RIGHT EAR (REPORTED FINDING IN AM ROUNDS) F.S.114,STRESS CANCELLED FOR TODAY TOLERATING PO, DENTURES IN MOUTH, ABD SOFT POSITIVE B.S., TOILET SET-UP FOR STOOL GUIAC, PHARMACY CALLED NO 1000 MEDS AVAILABLE IN DISK, NSR 80'S,BP 140/69, DENIES CP, 2L NC 97%,DIMISHED LUNG SOUNDS FINE CRACKLES B/L UPPER LOBES,NO COUGH, NO SOB,OOB TO TOILET,ORDERED EMBOLIC STOCKINGS TO PLACE ON PATIENT PER ORDER,REPORTED TO MD REFUSAL OF ALPS,WILL CONTINUE TO MONITOR
--- NOTE | 2016-08-07 09:59 | PN- Cardiology ---
Subjective Subjective: * Patient feels much improved. Shortness of breath is resolved. * BP is at the upper limits of normal today and last evening. * Normal EF of echo with mild left ventricular hypertrophy. Objective Vital Signs and I&Os Vital Signs Date Time Temp Pulse Resp B/P Pulse O2 O2 Flow FiO2 Ox Delivery Rate 08/07 0805 99.6 82 18 140/69 97 Nasal 2.0L Cannula 08/07 0000 Nasal 2.0L Cannula 08/06 2230 97.9 70 22 146/74 95 Nasal 2.0L Cannula 08/06 1839 Nasal 2.0L Cannula 08/06 1611 98.3 85 24 180/72 98 Nasal 2.0L Cannula 08/06 1600 95 Nasal 2.0L Cannula 08/06 1502 97 Nasal 2.0L Cannula 08/06 1404 99 Nasal 2.0L Cannula 08/06 1340 98.2 82 22 198/80 99 Nasal 2.0L Cannula 08/06 1318 98.7 77 15 155/67 98 Nasal 2.0L Cannula 08/06 1157 98.6 82 20 168/74 94 Nasal 2.0L Cannula 08/06 1054 Room Air Room Air 08/06 1042 162/68 08/06 1019 98.1 93 16 214/78 93 Intake & Output 08/07 1600 08/07 0800 08/07 0000 08/06 1600 08/06 0800 08/06 0000 Intake Total 0 350 0 Output Total 1500 1175 1200 Balance -1500 -825 -1200 Intake, IV 0 0 Intake, Oral 0 350 0 Number 0 0 Bowel Movements Output, Urine 1500 1175 1200 Patient 205 lb 220 lb Weight Physical Exam: General: WD/ obese female in NAD; alert and oriented x 3 Neck: no JVD, no carotid bruit Heart: RRR w/o murmur Lungs: clear bilaterally Extremities: no edema Assessment/Plan Assessment/Plan * Patient is doing well from a cardiac standpoint. She has a normal EF with mild LVH on her echocardiogram. Her breathing is improved. Okay to discharge to home from a cardiac standpoint on Lasix 20mg daily, Losartan 100mg daily, Metoprolol ER 50mg daily, aspirin 81mg daily and Atorvastatin 40mg daily. Follow up in the office in one week. A low sodium and weight loss diet has been recommended. Continue telemetry? Yes
[2016-08-07] MEDS ORDERED: FERROUS SULFAT325 M2 PO (10:48)
--- NOTE | 2016-08-07 10:49 | Patient Discharge Instructions ---
Discharge Instructions General Discharge Information You were seen/treated for: Shortness of breath Special Instructions: -Take your medication as prescribed -Follow up with as an outpatient for pharamacologic stress test in 1 week -Take your medications as prescribed -Follow up with in 1 week after discharge -Continue using spirometry as needed Activity Full Activity/No Limits: Yes (As tolerated) Acute Coronary Syndrome Inclusion Criteria At DC or during hospital stay patient has or had the following: ACS DIAGNOSIS No Discharge Core Measures Meds if any: Prescribed or Continued at Discharge Meds if any: NOT Prescribed or Continued at Discharge Congestive Heart Failure Inclusion Criteria At DC or during hospital stay patient has or had the following: CHF DIAGNOSIS No Discharge Core Measures Meds if any: Prescribed or Continued at Discharge Meds if any: NOT Prescribed or Continued at Discharge Cerebrovascular accident Inclusion Criteria At DC or during hospital stay patient has or had the following: CVA/TIA Diagnosis No Discharge Core Measures Meds if any: Prescribed or Continued at Discharge Meds if any: NOT Prescribed or Continued at Discharge Venous thromboembolism Inclusion Criteria VTE Diagnosis No VTE Type NONE VTE Confirmed by (Test) NONE Discharge Core Measures - Per Current guidelines, there needs to be overlap - treatment for the first 5 days of Warfarin therapy. - If discharged on Warfarin prior to 5 days of - overlap therapy, the patient will need to be - assessed for post discharge needs including - *Post discharge parental anticoagulation - *Warfarin and/or parental anticoagulation education - *Follow up date to check INR post discharge At least 5 days overlap therapy as Inpatient No Meds if any: Prescribed or Continued at Discharge Note: Overlap Therapy is Warfarin and Anticoagulant Meds if any: NOT Prescribed or Continued at Discharge
--- NOTE | 2016-08-07 15:41 | NUR ---
PER ORDER TITRATE O2 2LNC 98% DECREASED TO 1LNC AT 1100 O2 SAT 93%; PATIENT REMOVED NC AT 1500 (I WANTED TO TRY WITH OUT IT) DESAT TO 85% REPORTED TO DR. NICK ESCOBAR PATIENT REMAINS ON 1L NC 93% REPORT GIVEN TO DURGA WALLER
[2016-08-07 16:26] VITALS: BP 166/76
[2016-08-08 00:04] VITALS: BP 136/70
[2016-08-08] MEDS ORDERED: LASIX20 M1 PO (05:50)
[2016-08-08 08:28] VITALS: BP 124/76
--- NOTE | 2016-08-08 08:33 | PN- Housestaff ---
[facility] 08/08/16 0829: Subjective Follow-up For: SOB Hypertension Complaints: no complaints Subjective: Patient seen and examined, lying comfortably with no acute distress, she denies any chest pain, SOB, no other complaint. Her vitals is stable Review of Systems Constitutional: Reports: no symptoms. EENTM: Reports: no symptoms. Cardiovascular: Reports: no symptoms. Respiratory: Reports: no symptoms. Gastrointestinal: Reports: no symptoms. Genitourinary: Reports: no symptoms. Objective Last 24 Hrs of Vital Signs/I&O Vital Signs Date Time Temp Pulse Resp B/P Pulse O2 O2 Flow FiO2 Ox Delivery Rate 08/08 0828 98.9 83 18 124/76 91 Nasal 1.0L Cannula 08/08 0004 97.8 73 16 136/70 94 Nasal Cannula 08/07 1841 92 Nasal 1.0L Cannula 08/07 1626 98.2 68 16 166/76 94 Nasal 1.5L Cannula 08/07 1600 Nasal 1.0L Cannula 08/07 1034 95 Nasal 2.0L Cannula 08/07 1003 82 140/69 08/07 1003 82 140/69 Intake & Output 08/08 1600 08/08 0800 08/08 0000 Intake Total 480 480 Output Total 750 750 Balance -270 -270 Intake, Oral 480 480 Output, Urine 750 750 Patient 202 lb Weight Physical Exam General Appearance: Alert, Oriented X3, Cooperative, No Acute Distress Skin: No Rashes, No Breakdown, No Significant Lesion HEENT: PERRLA, EOMI Cardiovascular: Normal S1, Normal S2 Lungs: Clear to Auscultation, Normal Air Movement Abdomen: Soft, No Tenderness Extremities: No Edema, Normal Pulses Current Medications: Current Medications Sig/Kunal Start time Last Medication Dose Route Stop Time Status Admin Acetaminophen 650 MG Q6P PRN 08/06 1500 AC 08/06 PO 1738 Albuterol Sulfate 3 ML Q4P PRN 08/06 1930 AC INH Alprazolam 0.5 MG BID PRN 08/06 1500 AC 08/07 PO 08/13 1459 1648 Aspirin Buffered 81 MG DAILY 08/06 1459 AC 08/07 PO 1003 Atorvastatin Calcium 40 MG 1700 08/06 1700 AC 08/07 PO 1641 Enoxaparin Sodium 40 MG DAILY 08/07 1000 AC 08/07 SC 1102 Ferrous Sulfate 325 MG BID 08/07 1000 AC 08/07 PO 2243 Ferrous Sulfate 325 MG DAILY 08/06 1609 DC 08/06 PO 1738 Furosemide 20 MG DAILY 08/08 1000 AC PO Furosemide 20 MG DAILY 08/07 1000 DC 08/07 IV 1101 Insulin Aspart 0 TIDAC 08/06 1700 AC SC Losartan Potassium 100 MG DAILY 08/07 1000 AC 08/07 PO 1003 Metoprolol Succinate 50 MG DAILY 08/07 1000 AC 08/07 PO 1003 Oxycodone/ 1 TAB Q6P PRN 08/06 1500 AC Acetaminophen PO Oxycodone/ 2 TAB Q6P PRN 08/06 1500 AC 08/07 Acetaminophen PO 1657 Assessment/Plan Assessment: 71 yo women with PMHx. of HTN, HLD, type 2 DM presented to ED from PCP office for SOB and elevated BP. Plan: #SOB with pulmonary vascular congestion: uncontrolled BP and anemia play a role , patient had PFT done at 2014 wich showed mild bronchitis, she is a former smoker quite years ago, used to smoke 1ppd. Please wean her off nasal cannula and ambulate the patient if she is stable discharge her. #EKG changes with SOB in pt who have multiple risk factor for CAD: Patient needs pharmacologic stress test, patient seen by who recommend to continue Metoprolol at 50mg daily and Losartan at 100mg daily. Begin Lasix at 20mg daily. This patient needs to engage in a low sodium and weight loss diet. Pharmacologic stress test to be done as an outpatient Will f/u echo. result #Anemia: her H&H 8.3/27.9, MCV:64.4, RDW:19.2. Will f/u FOBT, will start iron supplement. today H&H: Iron study shows low iron and ferritin level #Hx. of HTN: Patient BP at presentation her BP: 214/78, down to 155/67, however it checked again and found to be 198/80. she is now on Lasix 20mg daily, beside home meds. Will continue her home meds: Metoprolol 50mg po daily, Losartan 100mg po daily. She report that Hydrochlorothiazide and Amlodipine was discontinued by PCP. #Hx. of DM: Will hold Metformin and start insulin sliding scale TIDAC/HS with acchucheck. #Hx. of HLD: Will continue Zocor 40mg PO QPM. She needs to F/U with in 1 week for pharmacologic stress test. Diabetic diet SC Lovenox Full code. Problem List: 1. Dyspnea on exertion Pain Ratin Pain Location: - Pain Goal: Remain pain free (-) Pain Plan: - Tomorrow's Labs & Rationales: - DVT/Prophylaxis: pharmacological JOSE LOFTON MD 08/08/16 1808: Attending MD Review Statement Attending Statement Attending MD Statement: examined this patient, discuss w/resident/PA/CHEESE GRADER, agreed w/resident/PA/CHEESE GRADER, discussed with family, reviewed EMR data (avail), discussed with nursing, discussed with case mgmt, amended to note Attending Assessment/Plan: The patient was seen and discussed with house staff. Patient improved, however still requiring oxygen (desaturates to 87% off oxygen). Will ambulate and recheck oxygen levels tomorrow. Continue current treatment.
--- NOTE | 2016-08-08 15:04 | PN- Cardiology ---
Subjective Subjective: Clinically stable. No new cardiac symptoms. No chest discomfort or shortness of breath. Blood pressure better controlled. Objective Vital Signs and I&Os Vital Signs Date Time Temp Pulse Resp B/P Pulse O2 O2 Flow FiO2 Ox Delivery Rate 08/08 1346 87 Room Air Room Air 08/08 1032 80 134/64 08/08 1032 80 134/64 08/08 0828 98.9 83 18 124/76 91 Nasal 1.0L Cannula 08/08 0800 91 Nasal 1.0L Cannula 08/08 0004 97.8 73 16 136/70 94 Nasal Cannula 08/07 1841 92 Nasal 1.0L Cannula 08/07 1626 98.2 68 16 166/76 94 Nasal 1.5L Cannula 08/07 1600 Nasal 1.0L Cannula Intake & Output 08/08 1600 08/08 0800 08/08 0000 08/07 1600 08/07 0800 08/07 0000 Intake Total 480 480 622 0 350 Output Total 750 547 140 6313 1175 Balance -270 -270 -178 -1500 -825 Intake, IV 22 0 0 Intake, Oral 480 480 600 0 350 Number 0 0 0 Bowel Movements Output, Urine 750 257 854 0311 1175 Patient 202 lb 205 lb Weight Physical Exam: General Appearance: Alert, Oriented X3, Cooperative, No Acute Distress, overweight Skin: No Rashes, No Breakdown, No Significant Lesion HEENT: Normal Cardiovascular: Normal S1, Normal S2 Lungs: Clear to Auscultation and percussion bilaterally Abdomen: Soft, No Tenderness Extremities: No Edema, Normal Pulses Current Medications: Current Medications Sig/Kunal Start time Last Medication Dose Route Stop Time Status Admin Acetaminophen 650 MG Q6P PRN 08/06 1500 AC 08/06 PO 1738 Albuterol Sulfate 3 ML Q4P PRN 08/06 1930 AC INH Alprazolam 0.5 MG BID PRN 08/06 1500 AC 08/08 PO 08/13 1459 0849 Aspirin Buffered 81 MG DAILY 08/06 1459 AC 08/08 PO 0847 Atorvastatin Calcium 40 MG 1700 08/06 1700 AC 08/07 PO 1641 Enoxaparin Sodium 40 MG DAILY 08/07 1000 AC 08/08 SC 0856 Ferrous Sulfate 325 MG BID 08/07 1000 AC 08/08 PO 0847 Furosemide 20 MG DAILY 08/08 1000 AC 08/08 PO 0847 Furosemide 20 MG DAILY 08/07 1000 DC 08/07 IV 1101 Glycerin/Mineral Oil 1 IVORY TID PRN 08/08 1145 AC TOP Insulin Aspart 0 TIDAC 08/06 1700 AC SC Losartan Potassium 100 MG DAILY 08/07 1000 AC 08/08 PO 1032 Metoprolol Succinate 50 MG DAILY 08/07 1000 AC 08/08 PO 1032 Oxycodone/ 1 TAB Q6P PRN 08/06 1500 AC Acetaminophen PO Oxycodone/ 2 TAB Q6P PRN 08/06 1500 AC 08/07 Acetaminophen PO 1657 Results Last 48 Hrs of Labs/Mics: Laboratory Tests 08/07/16 0640: Anion Gap 11, Estimated GFR > 60, BUN/Creatinine Ratio 21.1 08/07/16 0615: CBC w Diff NO MAN DIFF REQ, RBC 4.53, MCV 64.5 L, MCH 19.0 L, RDW 19.4 H, MPV 8.0, Gran % 64.7, Lymphocytes % 24.3, Monocytes % 8.5, Eosinophils % 2.1, Basophils % 0.4, Absolute Granulocytes 3.9, Absolute Lymphocytes 1.5, Absolute Monocytes 0.5, Absolute Eosinophils 0.1, Absolute Basophils 0, PUBS MCHC 29.4 L 08/06/16 1725: Troponin I < 0.01, PT 11.5, INR 1.10, APTT 27 Assessment/Plan Assessment/Plan Assessment: 1. Hypertension 2. Abnormal ECG 3. Diabetes 4. HFpEF Recommendations: -Continue current medication regimen -Out of bed as tolerated -Discharge planning -Follow-up with Dr. Kaminski as outpatient. Continue telemetry? No
[2016-08-08 15:51] VITALS: BP 130/62
[2016-08-09 00:44] VITALS: BP 132/64
[2016-08-09 08:14] VITALS: BP 142/62
--- NOTE | 2016-08-09 09:26 | PN- Housestaff ---
JACINDA TAPIA,ANNETTE 08/09/16 0926: Subjective Follow-up For: Shortness of breath, hypertension Complaints: no complaints Tele-Events Since Last Visit: Normal sinus rhythm, heart rate 75-83, and event Subjective: I followed up and examined the patient today. She is resting comfortably in her chair, using additional oxygen, and 1 L/m, she had slight increase in her temperature 99.6 this morning, no event overnight otherwise. She does not have any complaints, and she mentions that she does not have any additional oxygen at home and would like to be sent home only after she has reached her baseline level which is saturating well at room air. Review of Systems Constitutional: Reports: see HPI. Objective Last 24 Hrs of Vital Signs/I&O Vital Signs Date Time Temp Pulse Resp B/P Pulse O2 O2 Flow FiO2 Ox Delivery Rate 08/09 1055 92 Nasal 1.0L Cannula 08/09 0837 90 142/62 08/09 0837 90 142/62 08/09 0814 99.6 90 20 142/62 91 Nasal 1.0L Cannula 08/09 0800 91 Nasal 1.0L Cannula 08/09 0044 98.4 75 18 132/64 91 Nasal 1.0L Cannula 08/08 2255 93 Nasal 1.0L Cannula Intake & Output 08/09 1600 08/09 0800 08/09 0000 Intake Total 500 600 Output Total [phone] Balance 100 -600 -600 Intake, Oral 500 600 Number 1 Bowel Movements Output, Urine [phone] Patient 90.492 kg Weight Physical Exam General Appearance: Alert, Oriented X3, Cooperative, No Acute Distress Other Physical Findings: Skin: No Rashes, No Breakdown, No Significant Lesion HEENT: PERRLA, EOMI Cardiovascular: Normal S1, Normal S2 Lungs: Clear to Auscultation, Normal Air Movement Abdomen: Soft, No Tenderness Extremities: No Edema, Normal Pulses Current Medications: Current Medications Sig/Kunal Start time Last Medication Dose Route Stop Time Status Admin Acetaminophen 650 MG Q6P PRN 08/06 1500 AC 08/06 PO 1738 Albuterol Sulfate 3 ML Q4P PRN 08/06 1930 AC INH Alprazolam 0.5 MG BID PRN 08/06 1500 AC 08/08 PO 08/13 145 2135 Aspirin Buffered 81 MG DAILY 08/06 1459 AC 08/09 PO 0837 Atorvastatin Calcium 40 MG 1700 08/06 1700 AC 08/09 PO 1620 Docusate Sodium 100 MG DAILY NEEDED PRN 08/09 0900 AC PO Enoxaparin Sodium 40 MG DAILY 08/07 1000 AC 08/09 SC 0838 Ferrous Sulfate 325 MG BID 08/07 1000 AC 08/09 PO 0837 Furosemide 20 MG DAILY 08/08 1000 AC 08/09 PO 0837 Glycerin/Mineral Oil 1 IVORY TID PRN 08/08 1145 AC 08/08 TOP 1711 Insulin Aspart 0 TIDAC 08/06 1700 AC SC Losartan Potassium 100 MG DAILY 08/07 1000 AC 08/09 PO 0837 Metoprolol Succinate 50 MG DAILY 08/07 1000 AC 08/09 PO 0837 Oxycodone/ 1 TAB Q6P PRN 08/06 1500 AC Acetaminophen PO Oxycodone/ 2 TAB Q6P PRN 08/06 1500 AC 08/07 Acetaminophen PO 1657 Polyethylene Glycol 17 GM DAILY 08/09 1000 AC 08/09 PO 1013 Senna/Docusate Sodium 1 TAB BID 08/09 1000 AC 08/09 PO 1013 Assessment/Plan Assessment: 71 yo woman with PMHx. of HTN, HLD, type 2 DM presented to ED from PCP office for SOB and elevated BP. Plan: #SOB with pulmonary vascular congestion: Uncontrolled BP and anemia play a role , patient had PFT done at 2014 wich showed mild bronchitis, she is a former smoker quite years ago, used to smoke 1ppd. Trying to wean today as well, but she is still requiring it today. Please wean her off nasal cannula and ambulate the patient if she is stable discharge her. #EKG changes with SOB in pt who have multiple risk factor for CAD: Patient needs pharmacologic stress test, patient seen by who recommend to continue Metoprolol at 50mg daily and Losartan at 100mg daily. Continue Lasix 20mg PO daily. This patient needs to engage in a low sodium and weight loss diet. Pharmacologic stress test to be done as an outpatient Will f/u echo. #Anemia: her H&H 8.3/27.9, MCV:64.4, RDW:19.2. Will f/u FOBT, will start iron supplement. today H&H: 8.6/29.2 Iron study shows low iron and ferritin level #Hx. of HTN: Patient BP at presentation her BP: 214/78, down to 155/67, however it checked again and found to be 198/80. she is now on Lasix 20mg daily, beside home meds. Will continue her home meds: Metoprolol 50mg po daily, Losartan 100mg po daily. She report that Hydrochlorothiazide and Amlodipine was discontinued by PCP. #Hx. of DM: Holding Metformin and she is on insulin sliding scale TIDAC/HS with acchuchecks. #Hx. of HLD: Will continue Zocor 40mg PO QPM. She needs to F/U with in 1 week for pharmacologic stress test. Diabetic diet SC Lovenox Full code. Problem List: 1. Dyspnea on exertion 2. HTN (hypertension) 3. Diabetes mellitus Pain Ratin Pain Location: - Pain Goal: Pain 4 or less Pain Plan: prn Tomorrow's Labs & Rationales: BEP to check on potassium (?going up) JOSE LOFTON MD 08/09/161925: Attending MD Review Statement Attending Statement Attending MD Statement: examined this patient, discuss w/resident/PA/TOOLMAKER, agreed w/resident/PA/TOOLMAKER, discussed with family, reviewed EMR data (avail), discussed with nursing, amended to note Attending Assessment/Plan: The patient was seen and discussed with house staff. Still requiring oxygen at present. Will continue IV Lasix today and follow-up pulse ox tomorrow.
[2016-08-09 18:05] VITALS: BP 154/78
--- NOTE | 2016-08-09 19:14 | PN- Cardiology ---
Subjective Subjective: The patient seems to be doing better. She remains on low level supplemental oxygen. She has not had a bowel movement in 4 days. Objective Vital Signs and I&Os Vital Signs Date Time Temp Pulse Resp B/P Pulse O2 O2 Flow FiO2 Ox Delivery Rate 08/09 1805 99.0 84 18 154/78 97 Nasal Cannula 08/09 1055 92 Nasal 1.0L Cannula 08/09 0837 90 142/62 08/09 0837 90 142/62 08/09 0814 99.6 90 20 142/62 91 Nasal 1.0L Cannula 08/09 0800 91 Nasal 1.0L Cannula 08/09 0044 98.4 75 18 132/64 91 Nasal 1.0L Cannula 08/08 2255 93 Nasal 1.0L Cannula Intake & Output 08/09 1600 08/09 0800 08/09 0000 08/08 1600 08/08 0800 08/08 0000 Intake Total 500 600 680 480 480 Output Total 453 173 9340 700 750 750 Balance 100 -600 -600 -20 -270 -270 Intake, Oral 500 600 680 480 480 Number 1 Bowel Movements Output, Urine 011 523 7086 700 750 750 Patient 200 lb 202 lb Weight Physical Exam: General Appearance: Alert, Oriented X3, Cooperative, No Acute Distress, overweight Skin: No Rashes, No Breakdown, No Significant Lesion HEENT: Normal Cardiovascular: Normal S1, Normal S2 Lungs: Clear to Auscultation and percussion bilaterally Abdomen: Soft, No Tenderness Extremities: No Edema, Normal Pulses Current Medications: Current Medications Sig/Kunal Start time Last Medication Dose Route Stop Time Status Admin Acetaminophen 650 MG Q6P PRN 08/06 1500 AC 08/06 PO 1738 Albuterol Sulfate 3 ML Q4P PRN 08/06 1930 AC INH Alprazolam 0.5 MG BID PRN 08/06 1500 AC 08/08 PO 08/13 1459 2135 Aspirin Buffered 81 MG DAILY 08/06 1459 AC 08/09 PO 0837 Atorvastatin Calcium 40 MG 1700 08/06 1700 AC 08/09 PO 1620 Docusate Sodium 100 MG DAILY NEEDED PRN 08/09 0900 AC PO Enoxaparin Sodium 40 MG DAILY 08/07 1000 AC 08/09 SC 0838 Ferrous Sulfate 325 MG BID 08/07 1000 AC 08/09 PO 0837 Furosemide 20 MG DAILY 08/08 1000 AC 08/09 PO 0837 Glycerin/Mineral Oil 1 IVORY TID PRN 08/08 1145 AC 08/08 TOP 1711 Insulin Aspart 0 TIDAC 08/06 1700 AC SC Losartan Potassium 100 MG DAILY 08/07 1000 AC 08/09 PO 0837 Metoprolol Succinate 50 MG DAILY 08/07 1000 AC 08/09 PO 0837 Oxycodone/ 1 TAB Q6P PRN 08/06 1500 AC Acetaminophen PO Oxycodone/ 2 TAB Q6P PRN 08/06 1500 AC 08/07 Acetaminophen PO 1657 Polyethylene Glycol 17 GM DAILY 08/09 1000 AC 08/09 PO 1013 Senna/Docusate Sodium 1 TAB BID 08/09 1000 AC 08/09 PO 1013 Assessment/Plan Assessment/Plan Assessment: 1. Hypertension 2. Abnormal ECG 3. Diabetes 4. HFpEF Recommendations: -Continue current medication regimen -Out of bed as tolerated -Discharge planning -Follow-up with Dr. Kaminski as outpatient. Continue telemetry? Yes
[2016-08-10 00:11] VITALS: BP 144/64
--- NOTE | 2016-08-10 08:19 | PN- Housestaff ---
See Addendum Subjective Follow-up For: SOB Hypertension Complaints: no complaints Subjective: Patient seen and examined, she is sitting in the chair comfortable with no acute distress, she denies any complaint, she only report constipation. Denies SOB, CP, COUGH, palpitation, fever, chills and there is no change in urinary or bowel habits. Vitals stable, she is still on 1.5 L NC, O2 sat 92% Review of Systems Constitutional: Reports: no symptoms. Cardiovascular: Reports: no symptoms. Respiratory: Reports: no symptoms. Gastrointestinal: Reports: constipation. Genitourinary: Reports: no symptoms. Musculoskeletal: Reports: no symptoms. Objective Last 24 Hrs of Vital Signs/I&O Vital Signs Date Time Temp Pulse Resp B/P Pulse O2 O2 Flow FiO2 Ox Delivery Rate 08/10 0011 98.1 86 20 144/64 92 Nasal 1.5L Cannula 08/10 0000 Nasal 1.0L Cannula 08/09 1805 99.0 84 18 154/78 97 Nasal Cannula 08/09 1055 92 Nasal 1.0L Cannula 08/09 0837 90 142/62 08/09 0837 90 142/62 08/09 0814 99.6 90 20 142/62 91 Nasal 1.0L Cannula Intake & Output 08/10 1600 08/10 0800 08/10 0000 Intake Total 60 490 Output Total 800 250 Balance -740 240 Intake, IV 10 10 Intake, Oral 50 480 Output, Urine 800 250 Patient 201 lb Weight Physical Exam General Appearance: Alert, Oriented X3, Cooperative, No Acute Distress Skin: No Rashes, No Breakdown, No Significant Lesion HEENT: Atraumatic, PERRLA, EOMI, Mucous Membr. moist/pink Cardiovascular: Normal S1, Normal S2 Lungs: Clear to Auscultation, Normal Air Movement Abdomen: Normal Bowel Sounds, Soft, No Tenderness Extremities: No Edema, Normal Pulses Current Medications: Current Medications Sig/Kunal Start time Last Medication Dose Route Stop Time Status Admin Acetaminophen 650 MG Q6P PRN 08/06 1500 AC 08/06 PO 1738 Albuterol Sulfate 3 ML Q4P PRN 08/06 1930 AC INH Alprazolam 0.5 MG BID PRN 08/06 1500 AC 08/09 PO 08/13 145 2042 Aspirin Buffered 81 MG DAILY 08/06 145 AC 08/09 PO 0837 Atorvastatin Calcium 40 MG 1700 08/06 1700 AC 08/09 PO 1620 Docusate Sodium 100 MG DAILY NEEDED PRN 08/09 0900 AC PO Enoxaparin Sodium 40 MG DAILY 08/07 1000 AC 08/09 SC 0838 Ferrous Sulfate 325 MG BID 08/07 1000 AC 08/09 PO 2042 Furosemide 20 MG DAILY 08/08 1000 AC 08/09 PO 0837 Glycerin/Mineral Oil 1 IVORY TID PRN 08/08 1145 AC 08/09 TOP 1945 Insulin Aspart 0 TIDAC 08/06 1700 AC SC Losartan Potassium 100 MG DAILY 08/07 1000 AC 08/09 PO 0837 Metoprolol Succinate 50 MG DAILY 08/07 1000 AC 08/09 PO 0837 Oxycodone/ 1 TAB Q6P PRN 08/06 1500 AC Acetaminophen PO Oxycodone/ 2 TAB Q6P PRN 08/06 1500 AC 08/07 Acetaminophen PO 1657 Polyethylene Glycol 17 GM DAILY 08/09 1000 AC 08/09 PO 1013 Senna/Docusate Sodium 1 TAB BID 08/09 1000 AC 08/09 PO 1013 Last 24 Hrs of Lab/Prem Results Last 24 Hrs of Labs/Mics: Laboratory Tests 08/10/16 0650: Sodium Pending, Potassium Pending, Chloride Pending, Carbon Dioxide Pending, Anion Gap Pending, BUN Pending, Creatinine Pending, BUN/Creatinine Ratio Pending Assessment/Plan Assessment: 71 yo woman with PMHx. of HTN, HLD, type 2 DM presented to ED from PCP office for SOB and elevated BP. Plan: #SOB with pulmonary vascular congestion: Uncontrolled BP and anemia play a role , patient had PFT done at 2014 wich showed mild bronchitis, she is a former smoker quite years ago, used to smoke 1ppd. Started yesterday on spirometry She report leg swelling theat was noticed few weeks ago, Will order B/L LE doppler to r/o DVT. Patient still needs NC, will try to wean her off to , check her sat. with ambulation, if stable will discharge. #EKG changes with SOB in pt who have multiple risk factor for CAD: Patient needs pharmacologic stress test, patient seen by who recommend to continue Metoprolol at 50mg daily and Losartan at 100mg daily. Continue Lasix 20mg PO daily. This patient needs to engage in a low sodium and weight loss diet. Pharmacologic stress test to be done as an outpatient Echo: 1. Normal EF of 75% with impaired LV relaxation. 2. Mild left ventricular hypertrophy. 3. Trace pulmonic insufficiency. #Anemia: her H&H 8.6/29.2, MCV:64.5, RDW:19.4. Will f/u FOBT, will start iron supplement. Iron study shows low iron and ferritin level #Hx. of HTN: Patient BP at presentation her BP: 214/78, down to 155/67, however it checked again and found to be 198/80. she is now on Lasix 20mg daily, beside home meds. Will continue her home meds: Metoprolol 50mg po daily, Losartan 100mg po daily. She report that Hydrochlorothiazide and Amlodipine was discontinued by PCP. #Hx. of DM: Holding Metformin and she is on insulin sliding scale TIDAC/HS with acchuchecks. #Hx. of HLD: Will continue Zocor 40mg PO QPM. She needs to F/U with in 1 week for pharmacologic stress test. Diabetic diet SC Lovenox Full code. Problem List: 1. Dyspnea on exertion 2. Anemia Pain Ratin Pain Location: 0 Pain Goal: Remain pain free Pain Plan: 0 Tomorrow's Labs & Rationales: - DVT/Prophylaxis: pharmacological
[2016-08-10 08:38] VITALS: BP 154/64
--- NOTE | 2016-08-10 09:51 | PN- Cardiology ---
Subjective Subjective: * No complaints of shortness of breath. * Pulse oximetry was 90 of room air. Objective Vital Signs and I&Os Vital Signs Date Time Temp Pulse Resp B/P Pulse O2 O2 Flow FiO2 Ox Delivery Rate 08/10 0838 99.0 92 20 154/64 93 Nasal 1.0L Cannula 08/10 0011 98.1 86 20 144/64 92 Nasal 1.5L Cannula 08/10 0000 Nasal 1.0L Cannula 08/09 1805 99.0 84 18 154/78 97 Nasal Cannula 08/09 1055 92 Nasal 1.0L Cannula Intake & Output 08/10 1600 08/10 0800 08/10 0000 08/09 1600 08/09 0800 08/09 0000 Intake Total 60 490 500 600 Output Total 800 250 802 336 9864 Balance -740 240 100 -600 -600 Intake, IV 10 10 Intake, Oral 50 480 500 600 Number 1 Bowel Movements Output, Urine 800 250 [phone] Patient 201 lb 200 lb Weight Physical Exam: General: WD/ obese female in NAD; alert and oriented x 3 Neck: no JVD, no carotid bruit Heart: RRR w/o murmur Lungs: clear bilaterally Extremities: no edema Assessment/Plan Assessment/Plan * Patient is doing well from a cardiac standpoint. She has a normal EF with mild LVH on her echocardiogram. Her breathing is improved with normal oxygen saturation on room air. Her BP remains mildly elevated. Add Nifedipine ER 30mg daily. * Okay to discharge to home from a cardiac standpoint on Lasix 20mg daily, Losartan 100mg daily, Metoprolol ER 50mg daily, Nifedipine ER 30mg daily, aspirin 81mg daily and Atorvastatin 40mg daily. Follow up in the office in one week. A low sodium and weight loss diet has been recommended. Continue telemetry? Yes
[2016-08-10 09:52] VITALS: BP 154/64
--- NOTE | 2016-08-10 11:06 | ULTRASOUND REPORT ---
EXAMINATION: US TRIPLEX LOWER EXTREMITY, BILATERAL CLINICAL INFORMATION: Shortness of breath. Desaturation. COMPARISON: None TECHNIQUE: Color-flow triplex imaging with spectral analysis and compression Doppler were performed on the bilateral lower extremities. FINDINGS: Respiratory variation, normal compression and augmented flow are noted throughout the bilateral lower extremities. The visualized common femoral vein, superficial femoral vein, profunda femoral vein, popliteal vein and midcalf peroneal and posterior tibial venous segments show no evidence of deep venous thrombosis. There is no Schrader's cyst. IMPRESSION: Normal triplex scan without evidence of deep venous thrombosis involving the bilateral lower extremities.
[2016-08-10] MEDS ORDERED: NIFEDIPINE ER30 M2 PO (13:31)
--- NOTE | 2016-08-10 13:50 | Discharge Summary ---
Visit Information Visit Dates Admission Date: 08/06/16 Discharge Date: 08/10/2016 Hospital Course Course Attending Physician: SIERRA YEPEZ M.D Primary Care Physician: EDI PARRA Other Care Providers: Him Specialist: Consulting Request: Consulting Specialty: Cardiology Consulting Physician: Hospital Course: 71F PMH HTN, HLD, T2DM sent from PCP office for exertional dyspnea and EKG changes. Over the past few months patient has noticed a decrease in exercise tolerance, becoming dyspneic after progressively shorter distances, now has to stop before completing a flight of stairs or walking more than a 100 feet. EKG done in ED shows NSR with T-wave flattening in inferior leads. EKG done in PCP office this morning shows an incomplete LBBB. First troponin is negative. Her vitals at admission was pertinent to BP:214/78 Labs pertinent to: H&H 8.3/27.9, MCV:64.4, RDW:19.2. Iron supplement was started. Cardiology consult was obtained with : who recommend to adjust her medications to Lasix 20mg daily, Losartan 100mg daily, Metoprolol ER 50mg daily, Nifedipine ER 30mg daily, aspirin 81mg daily and Atorvastatin 40mg daily. Follow up in the office in one week for stress test. A low sodium and weight loss diet has been recommended. Pulmonology consult was also obtained with who recommend toto follow up with him in the next few weeks for an outpatient sleep study. Continue to use as needed pro-air. Aggressive blood pressure control advised. Weight loss therapy recommended. Continue to use other medications. Patient O2 saturation improved after spirometry, she was advised to continue using spirometry at home. Lower extremity Doppler negative Chest x-ray showed central venous congestion CT scan of the chest done in May 2015 showed cardiomegaly with triple- vessel disease with mediastinal lymph nodes which were enlarged before is improved patient has had some abnormality in the right lower lobe which has been present stable thyroid nodule Complications: Non Allergies: Coded Allergies: Penicillins (Intermediate, RASH 08/06/16) Iodinated Contrast Media - Oral and (Intermediate, HOT FLASHES 08/06/16) Disposition Summary Disposition Principal Diagnosis: -Mild obstructive lung disease, previous mediastinal lymphadenopathy -Acute diastolic heart disease with elevated blood pressure -Microcytic anemia -Hx. of HTN, HLD, T2DM Additional Diagnosis: As above Discharge Disposition: home or self care Discharge Instructions General Discharge Information Code Status: Full Code Patient's Diet: Heart healthy, diabetic diet Patient's Activity: As tolerated Follow-Up Instructions/Appts: -Follow up with your primary care physician in 1 week after discharge -F/u with you java android developer in 1 week after discharge, stress test to be done as outpatient -Follow up with your web content manager in 1 week after discharge -Take your medications as prescribed Medications at Discharge Discharge Medications: Stop taking the following medications: Hydrochlorothiazide (Hydrodiuril 25 MG Tab) 25 MG TABLET ORAL DAILY Qty = 90 Continue taking these medications: Simvastatin (Simvastatin) 40 MG TABLET 1 Tablet ORAL Every night Comments: Last Taken:10/31/14 Time: 0900 Aspirin (Ecotrin) 81 MG TABLET.DR 1 Tablet ORAL DAILY Comments: Last Taken: 11/01/14 Time: 0900 Albuterol Sulfate (Albuterol Sulfate) 3 ML NEB 3 Milliliters Inhale through mouth DAILY as needed for DYSPNEA Qty = 75 Comments: Last Taken: NOT GIVEN IN HOSPITAL Time: Losartan Potassium (Losartan Potassium) 100 MG TABLET 1 Tablet ORAL DAILY Qty = 90 Comments: given 08/10/16 @ 10 am Fluticasone Propionate (Flovent Hfa) 110 MCG/ACTUATION AER.W.ADAP 2 Puff Inhale through mouth TWICE DAILY Qty = 12 Comments: not given Metoprolol Succinate (Metoprolol Succinate) 50 MG TAB.ER.24H 1 Tablet ORAL DAILY Qty = 90 Instructions: PT REPORTS TAKING 2 PILLS IN THE MORNING AND TWO PILLS AT NIGHT. PT UNSURE OF TOTAL DAILY DOSE Comments: given 08/10/16 @ 10 am Metformin HCl (Metformin HCl ER) 500 MG TAB.ER.24H 2 Tablet ORAL TWICE DAILY Qty = 360 Comments: not given Alprazolam (Alprazolam) 0.5 MG TABLET 1 Tablet ORAL 2 x Daily as needed Qty = 60 Comments: given 08/09/16 @ 9pm Start taking the following new medications: Ferrous Sulfate (Ferrous Sulfate) 325 MG (65 MG IRON) TABLET. 325 Milligram ORAL TWICE DAILY Qty = 30 No Refills Comments: given 08/09/16 @ 9pm Nifedipine (Nifedipine ER) 30 MG TAB.ER.24 30 Milligram ORAL DAILY Qty = 30 No Refills Comments: not given Furosemide (Lasix) 20 MG TABLET 1 Tablet ORAL DAILY Qty = 30 No Refills Comments: given 08/10/16 @ 10 am Copies To: CELESTE TAPIA,JOHN
--- NOTE | 2016-08-10 18:40 | Cons- Pulmonary ---
General Information and HPI Consulting Request Date of Consult: 08/10/16 Requested By: med team History of Present Illness: 71F PMH HTN, HLD, T2DM sent from PCP office for exertional dyspnea and EKG changes. Over the past few months patient has noticed a decrease in exercise tolerance, becoming dyspneic after progressively shorter distances, now has to stop before completing a flight of stairs or walking more than a 100 feet. Denies chest pain, palpitations, or lightheadedness. Was previously admitted for syncope October 2014 but this was most likely vasovagal as it occured in a very hot elevator in the summer. Noticed lower extremity edema for the past two weeks as well. EKG done in ED shows NSR with T-wave flattening in inferior leads. EKG done in PCP office this morning shows an incomplete LBBB. First troponin is negative. SInce she came in she was noted to have mild pulm edema with sig htn and was aggresively diuresed NOw she did have desat upon excerction and hence this consult patient should continue to say that she has improved significantly and she felt much better. Upon exertion her O2 sat did not Recently she has had worsening hypertension which is now much better upon new medication. She does have snoring and increase hypersomnia lately and she feels fatigued. Review of symptoms otherwise unremarkable Allergies/Medications Allergies: Coded Allergies: Penicillins (Intermediate, RASH 08/06/16) Iodinated Contrast Media - Oral and (Intermediate, HOT FLASHES 08/06/16) Home Med List: Albuterol Sulfate 3 ML NEB 3 ML INH DAILY PRN DYSPNEA (Reported) Alprazolam 0.5 MG TABLET 1 TAB PO BIDP ANXIETY (Reported) Aspirin (Ecotrin) 81 MG TABLET.DR 1 TAB PO DAILY HEART HEALTH (Reported) Ferrous Sulfate 325 MG (65 MG IRON) TABLET. 325 MG PO BID anemia Fluticasone Propionate (Flovent Hfa) 110 MCG/ACTUATION AER.W.ADAP 2 PUF INH BID RESPIRATORY (Reported) Furosemide (Lasix) 20 MG TABLET 1 TAB PO DAILY diuresis Losartan Potassium 100 MG TABLET 1 TAB PO DAILY HTN (Reported) Metformin HCl (Metformin HCl ER) 500 MG TAB.ER.24H 2 TAB PO BID DIABETES ( Reported) Metoprolol Succinate 50 MG TAB.ER.24H 1 TAB PO DAILY HTN (Reported) PT REPORTS TAKING 2 PILLS IN THE MORNING AND TWO PILLS AT NIGHT. PT UNSURE OF TOTAL DAILY DOSE Nifedipine (Nifedipine ER) 30 MG TAB.ER.24 30 MG PO DAILY HTN Simvastatin 40 MG TABLET 1 TAB PO QPM CHOLESTEROL (Reported) Review of Systems Review of Systems Constitutional: Reports: see HPI. 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 Home Services at Home: None Smoking Status: Former Smoker (quit 25 years ago) Functional Ability Ambulation: independent Exam & Diagnostic Data Last 24 Hrs of Vital Signs/I&O Vital Signs Date Time Temp Pulse Resp B/P Pulse O2 O2 Flow FiO2 Ox Delivery Rate 08/10 0952 154/64 08/10 0952 154/64 08/10 0838 99.0 92 20 154/64 93 Nasal 1.0L Cannula 08/10 0011 98.1 86 20 144/64 92 Nasal 1.5L Cannula 08/10 0000 Nasal 1.0L Cannula Intake & Output 08/10 1600 08/10 0800 08/10 0000 Intake Total 60 490 Output Total 800 250 Balance -740 240 Intake, IV 10 10 Intake, Oral 50 480 Output, Urine 800 250 Patient 201 lb Weight Laboratory Tests 08/10 0650 Chemistry Sodium (137 - 145 mmol/L) 140 Potassium (3.5 - 5.1 mmol/L) 4.6 Chloride (98 - 107 mmol/L) 95 L Carbon Dioxide (22 - 30 mmol/L) 31 H Anion Gap (5 - 16) 15 BUN (7 - 17 mg/dL) 31 H Creatinine (0.5 - 1.0 mg/dL) 1.1 H Estimated GFR (>60 ml/min) 49 L BUN/Creatinine Ratio (7 - 25 %) 28.2 H Last 48 Hrs of Labs/Prem: Laboratory Tests 08/10/16 0650: Anion Gap 15, Estimated GFR 49 L, BUN/Creatinine Ratio 28.2 H Assessment/Plan Impression/Plan: Physical Exam: General: WD/ obese female in NAD; alert and oriented x 3 Neck: no JVD, no carotid bruit Heart: RRR w/o murmur Lungs: clear bilaterally Extremities: no edema SIGNIFICANT DATA Lower extremity Doppler negative Chest x-ray showed central venous congestion CT scan of the chest done in May 2015 showed cardiomegaly with triple- vessel disease with mediastinal lymph nodes which were enlarged before is improved patient has had some abnormality in the right lower lobe which has been present stable thyroid nodule IMPRESSION This is a lady with mild obstructive lung disease, previous mediastinal lymphadenopathy which seemed to have reduced in size previously, now comes in with the Acute diastolic heart disease with elevated blood pressure without seems to be improving. Patient seems to have improved after she was diuresed. Her active pulmonary issues include Probable upper airway resistance syndrome with obstructive sleep apnea which needs to be evaluated with a sleep study which could be contributing to her blood pressure Shortness of breath and hypoxemia related to resolving diastolic heart disease patient is now better Right lower lobe mild abnormality which has been present before with previous history of pneumonia which is improved No clinical evidence suggestive of malignancy Morbid obesity RECOMMENDATION patient was advised to follow up with me in the next few weeks for an outpatient sleep study Continue to use as needed pro-air Aggressive blood pressure control advised Weight loss therapy recommended Continue to use other medications Patient has significantly elevated ejection fraction with diastolic heart disease which seems to be her main issue causing acute pulmonary edema. Consult Acknowledgment - Thank you for your consult request.
== END 2016-08-10 16:05 | disposition home health service (06) | DRG 292 ==
LOC: ENRESERVTM → ENRESERVDT → ERH 10:14 → ERHI 11:27 → 1NO 11:27
PROVIDERS: Physician Assistant; Student in an Organized Health Care Education/Training Program; ADMIT Internal Medicine
DX: I11.0 Hypertensive heart disease with heart failure (principal); J44.9 Chronic obstructive pulmonary disease, unspecified; Z68.41 Body mass index [BMI] 40.0-44.9, adult; E11.9 Type 2 diabetes mellitus without complications; E78.5 Hyperlipidemia, unspecified; D50.9 Iron deficiency anemia, unspecified; E66.9 Obesity, unspecified; Z79.84 Long term (current) use of oral hypoglycemic drugs; Z87.891 Personal history of nicotine dependence; I50.33 Acute on chronic diastolic (congestive) heart failure
CPT/HCPCS: 1NP; 36415; 81001; 82436; 93005; 93010; 93306; 93970; J1650; J1940; J3490